=== PATIENT | male | born 1980 | race Hispanic/Latino ===

== ENCOUNTER 2019-07-12 16:33 | Emergency (ER) | payer BC ==
[~2019-07-12] VITALS: Ht 170.2 cm; Wt 103.0 kg
--- NOTE | 2019-07-12 23:14 | EKG ---
[facility] [address] [facility] [place], [place] [address] Signed Normal sinus rhythm with sinus arrhythmia Normal ECG No previous ECGs available Confirmed by HERO RIOS MD [id number] on 07/12/2019 11:14:42 PM Electronically Signed By: HERO RIOS MD 07/12/19 2314 PATIENT NAME: EVY HARRIS RYAN Electrocardiogram DATE OF : 80 PHYSICIAN: HERO RIOS MD REPORT #: [id number] REPORT IS CONFIDENTIAL AND NOT TO BE RELEASED WITHOUT AUTHORIZATION
== END 2019-07-12 18:20 | disposition home or self-care (01) ==
LOC: ED 16:33
DX: F41.9 Anxiety disorder, unspecified (principal); R20.2 Paresthesia of skin; Z88.0 Allergy status to penicillin
CPT/HCPCS: 70450; 80053; 83735; 84484; 85025; 93005; 93010; 99284-25